=== PATIENT | female | born 1980 | race Caucasian/White ===

== ENCOUNTER 2024-12-18 06:11 | Day surgery (SDC) | payer OTHER, SELFPAY ==
[2024-12-18] VITALS (9 sets, daily range): BP systolic 98–115; BP diastolic 66–88; BMI 22.0
[2024-12-18] MEDS: NORMOSOL-R/PLASMALYTE-A 1000 IV (11:39)
[2024-12-18] MEDS: DETROL LA 4 MG PO (14:28)
[2024-12-23 22:40] LABS: Stone Analysis Mass 4 mg
== END 2024-12-18 15:15 | disposition home or self-care (01) ==
LOC: SDS 06:11
PROVIDERS: ATTENDING PHYSICIAN Surgery
DX: N20.2 Calculus of kidney with calculus of ureter (principal); Z87.448 Personal history of other diseases of urinary system; Z87.442 Personal history of urinary calculi
CPT/HCPCS: 52356; 74018; 76000; 82365; C1894; C2617

== ENCOUNTER 2024-12-20 18:35 | Emergency (ER) | payer OTHER, SELFPAY ==
[2024-12-20] VITALS (7 sets, daily range): BP systolic 103–156; BP diastolic 74–90; BMI 23.8
[2024-12-20 18:53] LABS: Hematocrit 37.3 % (37.0-47.0); Hemoglobin 12.6 g/dL (12.0-16.0); Mean Corp Hgb Conc. 33.8 g/dL (33.0-37.0); Mean Corpuscular Volume 92.6 fL (81.0-99.0); Nucleated Red Blood Cells % 0 %; Platelet Count 259 10^3/uL (130-400); Red Cell Dist. Width 12.8 % (11.5-14.5)
[2024-12-20 19:09] LABS: ALT (SGPT) 22 U/L (0-35); AST (SGOT) 20 U/L (14-36); Albumin 4.2 g/dl (3.5-5.0); Alkaline Phosphatase 37 U/L (38-126); Blood Urea Nitrogen 13 mg/dl (7-17); Calcium 9.4 mg/dl (8.4-10.2); Carbon Dioxide 25 mmol/L (22-30); Chloride 109 mmol/L (98-107); Glucose 96 mg/dl (70-99); Potassium 4.3 mmol/L (3.5-5.1); Sodium 139 mmol/L (135-145); Total Protein 6.7 g/dl (6.3-8.2); eGFR > 60.00
[2024-12-20 19:28] LABS: HCG, Serum Qualitative Screen Negative
--- NOTE | 2024-12-20 20:34 | ED.GENMED ---
History of Present Illness
General
Chief Complaint: Abdominal Symptoms
Time Seen by Provider: 12/20/24 20:34
History of Present Illness
History of Present Illness:
TIME OF INITIAL EVALUATION
- 8:40 PM
REVIEW OF OLD RECORDS
- The patient had lithotripsy with Dr. Dunham 2 days ago. According to records, the patient was found to have a left-sided ureteral stone with hydronephrosis at [facility] emergency department in December 2023
Note:
CHIEF COMPLAINT(S)
Lower abdominal pain.
HISTORY OF PRESENT ILLNESS
The patient is a 44-year-old female with a known history of a renal calculus in the left ureter diagnosed in December 2023 at [facility] Emergency Department. The initial evaluation identified a four-millimeter stone, which the patient has not
passed. Two days ago, the patient underwent a lithotripsy procedure performed by Dr. Dunham to address the ureteral stone, and a stent was placed. Presently, the patient reports experiencing recurrent left-sided abdominal pain. The pain does not
increase with percussion of the back but is somewhat less tender upon palpation of the abdomen. The patient describes intermittent waves of pain, similar to previous episodes.
The patient mentions the use of a bladder spasm medication, tolterodine. There is no mention of fever accompanying her symptoms. The previous lithotripsy was intended to fragment the stone, yet the patient continues to experience pain, raising
concerns about stone passage or other complications.
PHYSICAL EXAM
General: Alert, no acute distress.
Skin: Warm, dry.
Head: Normocephalic, atraumatic.
Neck: Supple, trachea midline.
Eye, ears, nose, mouth, and throat: Oral mucosa moist.
Cardiovascular: Normal peripheral perfusion, no edema.
Respiratory: Respirations are non-labored.
Gastrointestinal: Abdomen nondistended, mild tenderness reported more on the left side.
Back: Normal range of motion, normal alignment.
Musculoskeletal: Normal ROM, normal strength.
Neurological: Alert and oriented to person, place, time, and situation, no focal neurological deficit observed.
Psychiatric: Cooperative, appropriate mood and affect.
PROBLEM LIST
Acute: Left ureteral stone with residual symptoms post-lithotripsy.
PLAN
1. Order a repeat Computed Tomography (CT) scan to reassess the stone status or any other underlying issues.
2. Administer Ketorolac (Toradol) for pain management.
3. Administer Ondansetron (Zofran) and intravenous fluids as supportive care.
4. Notify the urology team with findings post-imaging.
DIFFERENTIAL DIAGNOSIS
The Differential Diagnosis includes, in no particular order and is not limited to:
1. Residual ureteral stone.
2. Ureteral obstruction.
3. Renal colic.
4. Urinary tract infection.
5. Nephrolithiasis.
6. Ureteral stent discomfort.
7. Pyelonephritis.
8. Gastrointestinal etiology such as diverticulitis.
9. Appendicitis.
10. Gynecological issues such as ovarian cysts or torsion.
RADIOLOGY
- I personally reviewed CT imaging
EKG
-
LABS
- White count 6.2, hemoglobin normal at 12.6, chemistries unremarkable, hCG negative
UPDATE
-SUMMARY OF ENCOUNTER
The patient, a 44-year-old female, was seen in the emergency department for evaluation of left-sided lower abdominal pain following a recent lithotripsy procedure and stent placement. Laboratory tests were normal, with a normal white blood cell
count and lactic acid levels. Urinary analysis showed significant blood, common post-urological procedures. CT scan revealed stones in both kidneys, with stents in place and no kidney swelling. Some inflammation was noted around the colon, raising
the possibility of an infectious etiology. The patient was considered for antibiotics that could address both a potential colonic and urinary infection. Pain management with a low dose of hydromorphone (Dilaudid) was discussed to provide temporary
pain relief while awaiting further consultation.
DISPOSITION
Discharge.
ASSESSMENT
The patients left-sided abdominal pain may be partially associated with urological intervention, though the role of potential colonic inflammation or infection cannot be ruled out.
EMERGENCY TREATMENTS ADMINISTERED
Ketorolac (Toradol) for pain management and ondansetron for nausea were administered. A dose of hydromorphone (Dilaudid) was considered for pain relief.
MANAGEMENT OF THE PATIENTS CARE WAS DISCUSSED WITH
Dr. Moran, the on-call urologist, was consulted to provide additional insights into the potential causes of the patients symptoms and to guide further management.
PLAN
Repeat consultation with Dr. Moran for urological evaluation. Commence antibiotics to address potential colonic or urinary infection. Administer Dilaudid for pain management. Follow up with outpatient urologist for ongoing care and stone management.
INDEPENDENT REVIEW OF LABS AND INTERPRETATION OF TESTS
My independent review of laboratory tests shows normal white blood cell count and lactic acid levels. My independent interpretation of the CT scan reveals bilateral kidney stones with stents in good position and absence of kidney swelling. Some
inflammation around the colon was noted, though its significance is currently unclear.
MEDICATION RECONCILIATION
Ketorolac (Toradol) administered for acute pain. Ondansetron given for nausea management. Hydromorphone (Dilaudid) later administered for pain management.
MEDICAL DECISION MAKING
-Complexity of Data Reviewed: Chronic conditions affecting care include ureteral stone with residual symptoms post-lithotripsy. Differential diagnosis includes residual ureteral stone, ureteral obstruction, renal colic, urinary tract infection,
nephrolithiasis, ureteral stent discomfort, pyelonephritis, gastrointestinal etiology such as diverticulitis, appendicitis, and gynecological issues such as ovarian cysts or torsion.
-Data:
Category 1
My independent interpretation of CT scan indicates no renal swelling and stents in good position, though colon inflammation is noted.
Category 3
Discussion of management with Dr. Moran, urologist.
-Risk: Consideration of Admission/Observation: Escalation of care including admission/observation was considered given the complexity and risk of the patients presenting complaint, exam findings, and/or their underlying comorbidities. However,
ultimately I feel the patient is safe for outpatient management with close follow-up. Reasoning: Work-up reassuring, does not reveal any acute life/organ-threatening processes, patients symptoms well controlled upon reevaluation, reexamination is
reassuring, vitals are stable, patient agreeable with discharge, reliable for follow-up.
DIAGNOSIS
Unspecified abdominal pain following urological procedure (ICD-10 R10.9)
I discussed case with Dr. Ruff. He recommended that she continue the tolterodine and reviewed the imaging and agrees that the stent is in place
Phy Exam
Physical Exam
Physical Exam:
See HPI
Course
Orders/Labs/Results
Orders:
Orders
12/20/24 18:46
Complete Blood Count/With Diff Urgent
Comprehensive Metabolic Panel Urgent
HCG, Serum Qualitative Screen Urgent
Comment: ADD ON
12/20/24 19:10
Add On- LAB Urgent
Comments:: serum hcg qualitative
Tests Added?: serum hcg qualitative
12/20/24 20:31
CT Abd/pel Without Iv Or Oral Urgent
Comment:
Reason For Exam: lower abdominal pain after lithrotripsy
12/20/24 20:33
Ketorolac [Toradol] 15 mg .ROUTE .STK-MED ONE
Ondansetron Injectable [Zofran] 4 mg .ROUTE .STK-MED ONE
Ondansetron Injectable [Zofran] 4 mg IV NOW STA
12/20/24 20:34
Ketorolac [Toradol] 15 mg IV NOW STA
12/20/24 20:35
0.9% Sodium Chloride 1000 ml [Nss] 1,000 ml IV BOLUS
12/20/24 20:57
Urinalysis Reflex To Culture Urgent
Date Specimen was Collected: 12/20/24
Time Specimen was Collected: 20:52
Urine Microscopic Reflex Cult Urgent
Urine Culture Urgent
RAMANDEEP Source: U
Specimen Description:
Date Specimen was Collected: 12/20/24
Time Specimen was Collected: 20:52
12/20/24 21:38
Lactic Acid Urgent
12/20/24 22:08
HYDROmorphone [Dilaudid] 0.5 mg IV NOW STA
12/20/24 22:21
Amoxicillin 875 mg/Clav 125 mg [Augmentin 875 mg/125 mg] 1 tablet PO NOW STA
12/20/24 22:50
Fluconazole [Diflucan] 150 mg PO NOW STA
Abnormal Lab Results
12/20/24 12/20/24
18:46 20:57
RBC 4.03 L 10^6/uL
(4.20-5.40)
MCH 31.3 H pg
(27.0-31.0)
MPV 10.6 H fL
(7.4-10.4)
Lymphocytes % 19.8 L %
(20.5-51.1)
Chloride 109 H mmol/L
(98-107)
Creatinine 0.5 L mg/dL
(0.6-1.0)
Alkaline Phosphatase 37 L U/L
(38-126)
Ur Occult Blood Reflex 4+ A
(Negative)
Leukocyte Esterase Rfl 2+ A
(Negative)
Urine RBC >100 A /HPF
(0-2)
Urine Albumin (Reflex) 3+ A
(Neg - Trace)
12/20/24 18:46
12/20/24 18:46
Vital Signs
Initial and Last Documented VS:
Initial Vital Signs
Temp Pulse Resp BP Pulse Ox
36.8 C 84 16 156/90 100
12/20/24 18:39 12/20/24 18:39 12/20/24 18:39 12/20/24 18:39 12/20/24 18:39
Last Documented Vital Signs
Temp Pulse Resp BP Pulse Ox
36.6 C 75 16 128/74 100
12/20/24 19:24 12/20/24 21:48 12/20/24 21:48 12/20/24 21:48 12/20/24 21:48
*Pulse Oximetry
SaO2: 100
Oxygen Mode of Delivery: Room air
Patient hypoxic: no
*Critical Care Note
Total Time (30-74mins, 75-104mins- exclusive of procedures): Not Applicable
ED Attending Note
-
Portions of this chart may have been created with voice recognition software.� Occasional wrong word or��sound alike� substitutions may have occurred due to the inherent limitations of voice recognition software.
Discharge Plan
Departure
Patient Disposition: Home (Routine Discharge)
Date of Disposition: 12/20/24
Time of Disposition: 22:49
Patient with high blood pressure during this ER visit?: Yes
Discharge Problem:
Abdominal pain
Instructions: Abdominal Pain, BLOOD PRESSURE
Prescriptions:
New
amoxicillin-pot clavulanate 875-125 mg tablet
1 tab PO BID Qty: 14 0RF
No Action
dextroamphetamine-amphetamine [Adderall] 10 mg Tablet
10 mg PO DAILY
tamsulosin [Flomax] 0.4 mg Capsule
0.4 mg PO DAILY
ferrous sulfate [Iron (ferrous sulfate)] 325 mg (65 mg iron) Tablet
325 mg PO DAILY
ibuprofen [Motrin] 400 mg Tablet
400 mg PO Q6H PRN (Reason: pain)
Collagen
1 dose PO DAILY
Probiotic
1 dose PO DAILY
lysine
1 dose PO DAILY
Referrals:
Rajiv Mckeon DO [Family Provider]
Edson Dunham MD [Active, Urology]
Activity Restrictions/Additional Instructions:
The cause of your symptoms is unclear. Your white blood cell count and lactic acid levels are both normal. The CAT scan suggested the possibility of some degree of inflammation/possible infection near the colon in the upper right side of the
abdomen. The urinalysis shows blood without any definite sign of an infection. We can try Augmentin. Dr. Ruff wants you to continue the tolterodine. I recommend 3-4 [id number] ibuprofen (Motrin) every 8 hours with food for a few days.
Return here if worse.
Interventions
Interventions:
*Risk Screen - Suicide Last Done: 12/20/24 18:42
*General Assessment Last Done: 12/20/24 19:20
*Neglect/Abuse Screening Last Done: 12/20/24 18:42
*ED- Fall Risk Assessment Last Done: 12/20/24 19:20
*ED COVID-19 Vaccine History Last Done: 12/20/24 19:20
SS-Gnxuir-Jfjxwvkmqo Assessment Last Done: 12/20/24 19:25
Discharge Date and Time
Print Language: TURKMEN
[2024-12-20] MEDS: NSS 1000 IV (20:37)
[2024-12-20] MEDS: TORADOL 15 MG IV (20:39)
[2024-12-20] MEDS: ZOFRAN 4 MG IV (20:41)
[2024-12-20 21:04] LABS: Urine Character Clear (Clear)
[2024-12-20 21:14] LABS: Urine Red Blood Cell >100 /HPF (0-2); Urine Squamous Cell >30 /LPF (Few)
[2024-12-20] MEDS: DILAUDID 0.5 MG IV (22:17)
[2024-12-20] MEDS: AUGMENTIN 875 MG/125 MG 1 TABLET PO (22:35)
[2024-12-20] MEDS: DIFLUCAN 150 MG PO (22:57)
== END 2024-12-20 23:10 | disposition home or self-care (01) ==
LOC: EMR 18:35
PROVIDERS: EMERGENCY PHYSICIAN Emergency Medicine; FAMILY PHYSICIAN Family Medicine
DX: R10.30 Lower abdominal pain, unspecified (principal); Z87.442 Personal history of urinary calculi
CPT/HCPCS: 99284; 96374; 96375; 96361; 74176; 80053; 81003; 81015; 83605; 84703; 85025; 87086